=== PATIENT | female | born 1965 | race Caucasian/White ===

== ENCOUNTER 2019-06-27 15:45 | Emergency (ER) | payer OTHER ==
[~2019-06-27] VITALS: Ht 165.1 cm; Wt 52.3 kg
[2019-06-27] MEDS ORDERED: CLINDAMYCIN 900 MG/D5% WATER 50 ML IV ONE (16:45)
[2019-06-27 16:49] LABS: BASOPHILS % (AUTO) 0.6 % (0.0-2.0); EOSINOPHILS % (AUTO) 0.7 % (1.0-6.0); HEMATOCRIT 36.3 % (36-46); HEMOGLOBIN 11.7 g/dL (12.0-16.0); LYMPHOCYTES # (AUTO) 1.3 K/uL (1.0-4.8); LYMPHOCYTES % (AUTO) 9.1 % (22.0-44.0); MEAN CORPUSCULAR HEMOGLOBIN 25.7 pg (26.0-34.0); MEAN CORPUSCULAR HGB CONC 32.3 G/dL (31.0-37.0); MEAN CORPUSCULAR VOLUME 80 fL (80-100); MONOCYTES # (AUTO) 1.1 K/uL (0.1-1.0); MONOCYTES % (AUTO) 7.5 % (2.0-9.0); NEUTROPHILS # (AUTO) 11.6 K/uL (1.8-7.7); NEUTROPHILS % (AUTO) 82.1 % (40.0-70.0); PLATELET COUNT (AUTO) 390 K/uL (150-450); RED BLOOD CELL COUNT(AUTO) 4.57 MIL/uL (4.00-5.20); RED CELL DISTRIBUTION WIDTH 14.6 % (11.5-14.5)
[2019-06-27 17:00] LABS: APPEARANCE,URINE CLOUDY (CLEAR); BILIRUBIN,URINE NEGATIVE (NEGATIVE); GLUCOSE, URINE (UA) NEGATIVE (NEGATIVE); KETONES,URINE NEGATIVE (NEGATIVE); LEUKOCYTE ESTERASE ,URINE MODERATE (NEGATIVE); NITRATE,URINE POSITIVE (NEGATIVE); OCCULT BLOOD,URINE SMALL (NEGATIVE); PROTEIN,URINE POS 1+ (NEGATIVE)
[2019-06-27 17:03] LABS: ANION GAP 10 mmol/L (8-16); CALCIUM, TOTAL 8.7 mg/dL (8.8-10.5); CARBON DIOXIDE 28 mmol/L (22-29); CHLORIDE 103 mmol/L (98-107); CREATININE 0.94 mg/dL (0.60-1.30); GLOMERULAR FILTR. RATE CALC > 60 mL/min (>60); GLUCOSE,RANDOM 94 mg/dL (70-110); POTASSIUM 3.5 mmol/L (3.5-5.1); SODIUM SERUM 141 mmol/L (136-145); UREA NITROGEN, BLOOD 14 mg/dL (7-18)
[2019-06-27 17:08] LABS: BACTERIA,URINE Many /HPF (None Seen)
[2019-06-27 17:09] LABS: ALANINE AMINOTRANSFERASE 91 U/L (12-78); ALBUMIN 3.7 g/dL (3.4-5.0); ALKALINE PHOSPHATASE 179 U/L (46-116); ASPARTATE AMINOTRANSFERASE 121 U/L (15-37); BILIRUBIN,TOTAL 0.4 mg/dL (0.1-1.0); TOTAL PROTEIN, SERUM 9.1 g/dL (6.4-8.2)
[2019-06-27 17:10] LABS: RBC,URINE 0-2 /HPF (0-2); SQUAMOUS EPITHELIAL CELL,UR Few /LPF (None Seen); WBC,URINE >100 /HPF (0-5)
[2019-06-27 17:16] LABS: LACTIC ACID 1.4 mmol/L (0.4-2.0)
[2019-06-27] MEDS ORDERED: HYDROCODONE/ACETAMINOPHEN 5-325 MG TABLET PO ONE (17:30)
[2019-06-27] MEDS ORDERED: SODIUM CHLORIDE 0.9% 100 ML ONE (17:33)
[2019-06-27] MEDS ORDERED: IOVERSOL 320 MG/ML 100 ML VIAL ONE (17:33)
[2019-06-27] MEDS ORDERED: CefTRIAXone 1 GM/DEXTROSE 50 ML IV ONE (19:15)
[2019-06-27] MEDS ORDERED: LIDOCAINE/PF 1% 2 ML VIAL IM ONE (19:30)
[2019-06-27] MEDS ORDERED: CefTRIAXone SODIUM 1 GM/VIAL IM ONE (19:30)
[2019-06-27 19:59] VITALS: BP 157/95
== END 2019-06-27 20:27 | disposition left against medical advice (07) ==
LOC: EMS 15:45
DX: L03.113 Cellulitis of right upper limb (principal); N39.0 Urinary tract infection, site not specified; R03.0 Elevated blood-pressure reading, without diagnosis of hypertension
CPT/HCPCS: 36415; 73201; 80053; 81001; 83605; 85025; 87040; 87077; 87086; 87186; 87205; 96365; 96372; 99285; J0696; J3490 ×2; J7050; Q9967

== ENCOUNTER 2019-07-08 08:17 | Emergency (ER) | payer OTHER ==
[~2019-07-08] VITALS: Ht 167.6 cm; Wt 70.0 kg
[~2019-07-08 08:17] MED LIST: SULF1TAB42 PO
[2019-07-08 08:22] VITALS: BP 150/97
== END 2019-07-08 10:09 | disposition home or self-care (01) ==
LOC: EMS 08:20
DX: L03.113 Cellulitis of right upper limb (principal); L08.9 Local infection of the skin and subcutaneous tissue, unspecified; F19.10 Other psychoactive substance abuse, uncomplicated; F17.210 Nicotine dependence, cigarettes, uncomplicated; J44.9 Chronic obstructive pulmonary disease, unspecified; F11.90 Opioid use, unspecified, uncomplicated; F12.90 Cannabis use, unspecified, uncomplicated; F14.90 Cocaine use, unspecified, uncomplicated
CPT/HCPCS: 99406

== ENCOUNTER 2021-10-31 00:53 | Inpatient (IN) | payer OTHER ==
[~2021-10-31] VITALS: Ht 165.1 cm; Wt 50.0 kg
[2021-10-31 02:31] LABS: BASOPHILS % (AUTO) 0.8 % (0.0-2.0); EOSINOPHILS % (AUTO) 1.4 % (1.0-6.0); HEMATOCRIT 28.9 % (36-46); HEMOGLOBIN 9.3 g/dL (12.0-16.0); LYMPHOCYTES # (AUTO) 1.3 K/uL (1.0-4.8); LYMPHOCYTES % (AUTO) 12.5 % (22.0-44.0); MEAN CORPUSCULAR HEMOGLOBIN 21.1 pg (26.0-34.0); MEAN CORPUSCULAR HGB CONC 32.1 G/dL (31.0-37.0); MEAN CORPUSCULAR VOLUME 66 fL (80-100); MONOCYTES # (AUTO) 0.9 K/uL (0.1-1.0); MONOCYTES % (AUTO) 8.3 % (2.0-9.0); NEUTROPHILS # (AUTO) 8.3 K/uL (1.8-7.7); PLATELET COUNT (AUTO) 572 K/uL (150-450); RED CELL DISTRIBUTION WIDTH 18.3 % (11.5-14.5)
[2021-10-31 02:45] LABS: CALCIUM, TOTAL 9.4 mg/dL (8.8-10.5); CHLORIDE 102 mmol/L (98-107); CREATININE 0.82 mg/dL (0.60-1.30); GLUCOSE,RANDOM 92 mg/dL (70-110); POTASSIUM 3.2 mmol/L (3.5-5.1); UREA NITROGEN, BLOOD 8 mg/dL (7-18)
[2021-10-31 02:50] LABS: ALANINE AMINOTRANSFERASE 14 U/L (12-78); ALBUMIN 3.3 g/dL (3.4-5.0); ALKALINE PHOSPHATASE 74 U/L (46-116); ANION GAP 14 mmol/L (8-16); ASPARTATE AMINOTRANSFERASE 18 U/L (15-37); BILIRUBIN,TOTAL 0.5 mg/dL (0.1-1.0); CARBON DIOXIDE 25 mmol/L (22-29); SODIUM SERUM 141 mmol/L (136-145); TOTAL PROTEIN, SERUM 8.8 g/dL (6.4-8.2)
[2021-10-31 02:51] LABS: GLOMERULAR FILTR. RATE CALC > 60 mL/min (>60)
[2021-10-31] MEDS ORDERED: SODIUM CHLORIDE 0.9% 1,000 ML IV ONE (04:00)
[2021-10-31 04:44] LABS: COVID AG,FIA SOURCE NASAL SWAB
[2021-10-31] MEDS ORDERED: LORazepam 2 MG TABLET PO PRN (05:45)
[2021-10-31 06:04] LABS: % IRON SATURATION 14.2 % (22-44)
[2021-10-31] MEDS ORDERED: POTASSIUM CHL 10 MEQ/WATER 50 ML IV PRN (07:00)
[2021-10-31] MEDS: MAGNESIUM SULFATE 2 GM, MVI, ADULT NO.1 WITH VIT K 10 ML, THIAMINE 100 MG, FOLIC ACID 1... IV SCH ×5 (07:59)
[2021-10-31] MEDS: HEPARIN SODIUM,PORCINE 5,000 UNITS/ML VIAL SQ SCH ×3 (08:01→23:44)
[2021-10-31] MEDS: POTASSIUM CHLORIDE 20 MEQ ER TABLET PO PRN ×3 (08:11→23:45)
[2021-10-31 08:49] VITALS: BP 156/78
[2021-10-31] MEDS: ACETAMINOPHEN 325 MG TABLET PO PRN ×3 (10:16→21:09)
[2021-10-31] MEDS: ONDANSETRON HCL 4 MG/2 ML VIAL IVP PRN ×3 (10:16→23:45)
[2021-10-31 16:42] VITALS: BP 158/72
[2021-10-31 20:15] VITALS: BP 142/66
[2021-10-31 23:15] LABS: APPEARANCE,URINE HAZY (CLEAR); BILIRUBIN,URINE NEGATIVE (NEGATIVE); GLUCOSE, URINE (UA) NEGATIVE (NEGATIVE); KETONES,URINE NEGATIVE (NEGATIVE); LEUKOCYTE ESTERASE ,URINE NEGATIVE (NEGATIVE); NITRATE,URINE NEGATIVE (NEGATIVE); OCCULT BLOOD,URINE NEGATIVE (NEGATIVE); PROTEIN,URINE NEGATIVE (NEGATIVE); SPECIFIC GRAVITIY, URINE 1.014 (1.003-1.030); UROBILINOGEN,URINE <=1.0 mg/dL (<=1.0)
[2021-10-31 23:21] LABS: AMPHET/METH SCREEN,URINE NEGATIVE (NEGATIVE); BARBITURATE SCREEN, URINE NEGATIVE (NEGATIVE); BENZODIAZEPINES SCREEN,URINE NEGATIVE (NEGATIVE); CANNABINOID SCREEN,URINE NEGATIVE (NEGATIVE); COCAINE SCREEN,URINE POSITIVE (NEGATIVE); METHADONE SCREEN, URINE NEGATIVE (NEGATIVE); OPIATE SCREEN,URINE POSITIVE (NEGATIVE)
[2021-10-31 23:22] LABS: PHENCYCLIDINE SCREEN,URINE NEGATIVE (NEGATIVE)
[2021-11-01] VITALS (9 sets, daily range): BP systolic 127–204; BP diastolic 68–113
[2021-11-01] MEDS: MAGNESIUM SULFATE 2 GM, MVI, ADULT NO.1 WITH VIT K 10 ML, THIAMINE 100 MG, FOLIC ACID 1... IV SCH ×5 (03:06)
[2021-11-01] MEDS ORDERED: LORazepam 2 MG TABLET PO PRN (07:00)
[2021-11-01] MEDS: HEPARIN SODIUM,PORCINE 5,000 UNITS/ML VIAL SQ SCH ×3 (08:00→23:44)
[2021-11-01] MEDS ORDERED: CloNIDine HCL 0.1 MG TABLET PO PRN ×2 (08:15→11:15)
[2021-11-01] MEDS ORDERED: LORazepam 2 MG TABLET PO SCH (09:00)
[2021-11-01] MEDS ORDERED: MAGNESIUM SULFATE 2 GM, MVI, ADULT NO.1 WITH VIT K 10 ML, THIAMINE 100 MG, FOLIC ACID 1... IV ONE ×5 (11:15)
[2021-11-01 11:36] LABS: BASOPHILS % (AUTO) 2.4 % (0.0-2.0); EOSINOPHILS % (AUTO) 0.8 % (1.0-6.0); HEMATOCRIT 31.6 % (36-46); LYMPHOCYTES # (AUTO) 1.6 K/uL (1.0-4.8); LYMPHOCYTES % (AUTO) 14.3 % (22.0-44.0); MEAN CORPUSCULAR HEMOGLOBIN 20.7 pg (26.0-34.0); MEAN CORPUSCULAR HGB CONC 31.6 G/dL (31.0-37.0); MEAN CORPUSCULAR VOLUME 66 fL (80-100); MONOCYTES # (AUTO) 0.7 K/uL (0.1-1.0); MONOCYTES % (AUTO) 6.6 % (2.0-9.0); NEUTROPHILS # (AUTO) 8.4 K/uL (1.8-7.7); NEUTROPHILS % (AUTO) 75.9 % (40.0-70.0); PLATELET COUNT (AUTO) 612 K/uL (150-450); RED BLOOD CELL COUNT(AUTO) 4.81 MIL/uL (4.00-5.20); RED CELL DISTRIBUTION WIDTH 18.4 % (11.5-14.5)
[2021-11-01 11:57] LABS: % IRON SATURATION 5.5 % (22-44); IRON, SERUM 23 mcg/dL (50-175); TOTAL IRON BINDING CAPACITY 415 mcg/dL (250-450)
[2021-11-01 12:11] LABS: ALANINE AMINOTRANSFERASE 17 U/L (12-78); ALBUMIN 3.3 g/dL (3.4-5.0); ALKALINE PHOSPHATASE 76 U/L (46-116); ANION GAP 13 mmol/L (8-16); ASPARTATE AMINOTRANSFERASE 26 U/L (15-37); BILIRUBIN,TOTAL 0.3 mg/dL (0.1-1.0); CARBON DIOXIDE 24 mmol/L (22-29); CHLORIDE 101 mmol/L (98-107); FERRITIN 26 ng/mL (8-252); GLOMERULAR FILTR. RATE CALC > 60 mL/min (>60); GLUCOSE,RANDOM 100 mg/dL (70-110); SODIUM SERUM 138 mmol/L (136-145); TOTAL PROTEIN, SERUM 9.1 g/dL (6.4-8.2); UREA NITROGEN, BLOOD 5 mg/dL (7-18)
[2021-11-01] MEDS: AmLODIPine BESYLATE 10 MG TABLET PO SCH (17:02)
[2021-11-01] MEDS: CloNIDine HCL 0.1 MG TABLET PO PRN (23:45)
[2021-11-01] MEDS: ACETAMINOPHEN 325 MG TABLET PO PRN (23:45)
[2021-11-02 08:08] VITALS: BP 126/91
[2021-11-02] MEDS: AmLODIPine BESYLATE 10 MG TABLET PO SCH (08:48)
[2021-11-02] MEDS: HEPARIN SODIUM,PORCINE 5,000 UNITS/ML VIAL SQ SCH ×3 (08:49→23:26)
[2021-11-02] MEDS: ACETAMINOPHEN 325 MG TABLET PO PRN ×3 (08:52→23:26)
[2021-11-02] MEDS ORDERED: *CLINICAL-LEVOFLOXACIN IVPB DOSING CLINICAL ONE (12:45)
[2021-11-02] MEDS: ChlordiazePOXIDE HCL 10 MG CAPSULE PO SCH ×2 (15:06→23:26)
[2021-11-02] MEDS: LEVOFLOXACIN 500 MG/D5% WATER 100 ML IV SCH (15:06)
[2021-11-02 16:03] VITALS: BP 159/95
[2021-11-02 19:30] VITALS: BP 154/86
[2021-11-02] MEDS: ONDANSETRON HCL 4 MG/2 ML VIAL IVP PRN (19:46)
[2021-11-02 23:28] VITALS: BP 138/92
[2021-11-03 03:56] VITALS: BP 145/80
[2021-11-03] MEDS: ONDANSETRON HCL 4 MG/2 ML VIAL IVP PRN ×4 (05:19→23:07)
[2021-11-03] MEDS: ACETAMINOPHEN 325 MG TABLET PO PRN ×4 (05:22→20:59)
[2021-11-03] MEDS ORDERED: LORazepam 1 MG TABLET PO PRN (07:00)
[2021-11-03 08:07] VITALS: BP 151/86
[2021-11-03] MEDS: ChlordiazePOXIDE HCL 10 MG CAPSULE PO SCH (08:37)
[2021-11-03] MEDS: AmLODIPine BESYLATE 10 MG TABLET PO SCH (08:37)
[2021-11-03] MEDS: HEPARIN SODIUM,PORCINE 5,000 UNITS/ML VIAL SQ SCH ×3 (08:38→20:59)
[2021-11-03] MEDS: VITAMINS A & D 113 GM OINTMENT TP SCH (08:38)
[2021-11-03] MEDS ORDERED: LORazepam 1 MG TABLET PO SCH (09:00)
[2021-11-03] MEDS: LEVOFLOXACIN 500 MG/D5% WATER 100 ML IV SCH (14:53)
[2021-11-03 15:59] VITALS: BP 133/76
[2021-11-03] MEDS ORDERED: VANCOMYCIN HCL 1 GM in DEXTROSE 5%-WATER 250 ML IV ONE (18:00)
[2021-11-03 19:52] VITALS: BP 143/87
[2021-11-04] MEDS: ACETAMINOPHEN 325 MG TABLET PO PRN ×5 (01:22→21:13)
[2021-11-04 05:34] VITALS: BP 148/73
[2021-11-04] MEDS: ONDANSETRON HCL 4 MG/2 ML VIAL IVP PRN (06:25)
[2021-11-04] MEDS ORDERED: LORazepam 1 MG TABLET PO PRN (07:00)
[2021-11-04 07:40] VITALS: BP 154/84
[2021-11-04] MEDS ORDERED: VANCOMYCIN HCL 750 MG in DEXTROSE 5%-WATER 250 ML IV SCH (08:00)
[2021-11-04 08:22] LABS: ANION GAP 8 mmol/L (8-16); CALCIUM, TOTAL 9.5 mg/dL (8.8-10.5); CARBON DIOXIDE 27 mmol/L (22-29); CHLORIDE 102 mmol/L (98-107); CREATININE 0.91 mg/dL (0.60-1.30); GLOMERULAR FILTR. RATE CALC > 60 mL/min (>60); GLUCOSE,RANDOM 97 mg/dL (70-110); POTASSIUM 4.2 mmol/L (3.5-5.1); SODIUM SERUM 137 mmol/L (136-145); UREA NITROGEN, BLOOD 17 mg/dL (7-18)
[2021-11-04] MEDS: HEPARIN SODIUM,PORCINE 5,000 UNITS/ML VIAL SQ SCH ×2 (09:20→16:00)
[2021-11-04] MEDS: AmLODIPine BESYLATE 10 MG TABLET PO SCH (09:21)
[2021-11-04] MEDS: VITAMINS A & D 113 GM OINTMENT TP SCH (09:21)
[2021-11-04] MEDS: PROMETHAZINE HCL 6.25 MG/5 ML SYRUP ORAL.SYG PO PRN ×2 (13:32→21:13)
[2021-11-04 15:11] VITALS: BP 148/74
[2021-11-04] MEDS: LEVOFLOXACIN 750 MG TABLET PO SCH (17:11)
[2021-11-04 19:50] VITALS: BP 136/77
[2021-11-04] MEDS: LINEZOLID 600 MG TABLET PO SCH (21:13)
[2021-11-05] MEDS: HEPARIN SODIUM,PORCINE 5,000 UNITS/ML VIAL SQ SCH ×3 (00:02→16:16)
[2021-11-05 04:14] VITALS: BP 151/84
[2021-11-05] MEDS: PROMETHAZINE HCL 6.25 MG/5 ML SYRUP ORAL.SYG PO PRN ×2 (06:41→16:16)
[2021-11-05] MEDS: ACETAMINOPHEN 325 MG TABLET PO PRN ×3 (06:41→22:47)
[2021-11-05] MEDS: LEVOFLOXACIN 750 MG TABLET PO SCH (08:33)
[2021-11-05] MEDS: LINEZOLID 600 MG TABLET PO SCH ×2 (08:33→20:31)
[2021-11-05] MEDS: AmLODIPine BESYLATE 10 MG TABLET PO SCH (08:33)
[2021-11-05] MEDS: VITAMINS A & D 113 GM OINTMENT TP SCH (09:00)
[2021-11-05 10:23] VITALS: BP 153/97
[2021-11-05 16:08] VITALS: BP 164/85
[2021-11-05] MEDS ORDERED: SODIUM CL IRRIG SOLN BOTTLE 250 ML IRRIG ONE (18:42)
[2021-11-05 20:00] VITALS: BP 171/83
[2021-11-05] MEDS: CloNIDine HCL 0.1 MG TABLET PO PRN (22:47)
[2021-11-06] MEDS: HEPARIN SODIUM,PORCINE 5,000 UNITS/ML VIAL SQ SCH ×4 (00:02→23:30)
[2021-11-06] MEDS: PROMETHAZINE HCL 6.25 MG/5 ML SYRUP ORAL.SYG PO PRN ×3 (00:28→23:30)
[2021-11-06 04:30] VITALS: BP 141/82
[2021-11-06 08:00] VITALS: BP 162/93
[2021-11-06] MEDS ORDERED: METOCLOPRAMIDE HCL 10 MG TABLET PO SCH (08:00)
[2021-11-06] MEDS: CloNIDine HCL 0.1 MG TABLET PO PRN (08:59)
[2021-11-06] MEDS: LEVOFLOXACIN 750 MG TABLET PO SCH (08:59)
[2021-11-06] MEDS: LINEZOLID 600 MG TABLET PO SCH ×2 (08:59→20:11)
[2021-11-06] MEDS: AmLODIPine BESYLATE 10 MG TABLET PO SCH (08:59)
[2021-11-06] MEDS: VITAMINS A & D 113 GM OINTMENT TP SCH (09:01)
[2021-11-06] MEDS: ACETAMINOPHEN 325 MG TABLET PO PRN ×2 (09:05→14:54)
[2021-11-06 16:00] VITALS: BP 121/71
[2021-11-06 19:55] VITALS: BP 123/66
[2021-11-07 04:30] VITALS: BP 145/96
[2021-11-07 07:05] LABS: BASOPHILS % (AUTO) 1.4 % (0.0-2.0); EOSINOPHILS % (AUTO) 1.9 % (1.0-6.0); HEMATOCRIT 31.3 % (36-46); HEMOGLOBIN 10.1 g/dL (12.0-16.0); LYMPHOCYTES # (AUTO) 2.7 K/uL (1.0-4.8); LYMPHOCYTES % (AUTO) 24.3 % (22.0-44.0); MEAN CORPUSCULAR HGB CONC 32.2 G/dL (31.0-37.0); MEAN CORPUSCULAR VOLUME 65 fL (80-100); MONOCYTES # (AUTO) 0.7 K/uL (0.1-1.0); MONOCYTES % (AUTO) 6.7 % (2.0-9.0); NEUTROPHILS # (AUTO) 7.2 K/uL (1.8-7.7); NEUTROPHILS % (AUTO) 65.7 % (40.0-70.0); PLATELET COUNT (AUTO) 517 K/uL (150-450); RED BLOOD CELL COUNT(AUTO) 4.81 MIL/uL (4.00-5.20); RED CELL DISTRIBUTION WIDTH 18.8 % (11.5-14.5)
[2021-11-07 07:19] LABS: ANION GAP 10 mmol/L (8-16); CALCIUM, TOTAL 8.8 mg/dL (8.8-10.5); CARBON DIOXIDE 25 mmol/L (22-29); CHLORIDE 102 mmol/L (98-107); CREATININE 0.91 mg/dL (0.60-1.30); GLUCOSE,RANDOM 88 mg/dL (70-110); POTASSIUM 4.1 mmol/L (3.5-5.1); SODIUM SERUM 137 mmol/L (136-145); UREA NITROGEN, BLOOD 22 mg/dL (7-18)
[2021-11-07 07:20] LABS: GLOMERULAR FILTR. RATE CALC > 60 mL/min (>60)
[2021-11-07 07:27] LABS: ALANINE AMINOTRANSFERASE 24 U/L (12-78); ALBUMIN 3.3 g/dL (3.4-5.0); ALKALINE PHOSPHATASE 66 U/L (46-116); ANION GAP 10 mmol/L (8-16); ASPARTATE AMINOTRANSFERASE 26 U/L (15-37); BILIRUBIN,TOTAL 0.3 mg/dL (0.1-1.0); CALCIUM, TOTAL 8.9 mg/dL (8.8-10.5); CARBON DIOXIDE 24 mmol/L (22-29); CHLORIDE 102 mmol/L (98-107); CREATININE 0.93 mg/dL (0.60-1.30); GLUCOSE,RANDOM 88 mg/dL (70-110); POTASSIUM 4.1 mmol/L (3.5-5.1); SODIUM SERUM 136 mmol/L (136-145); TOTAL PROTEIN, SERUM 8.2 g/dL (6.4-8.2); UREA NITROGEN, BLOOD 22 mg/dL (7-18)
[2021-11-07 07:28] LABS: GLOMERULAR FILTR. RATE CALC > 60 mL/min (>60)
[2021-11-07 07:35] LABS: C-REACTIVE PROTEIN QUANT < 0.05 mg/dL (0.00-0.30)
[2021-11-07 08:34] VITALS: BP 130/84
[2021-11-07] MEDS: LEVOFLOXACIN 750 MG TABLET PO SCH (08:40)
[2021-11-07] MEDS: HEPARIN SODIUM,PORCINE 5,000 UNITS/ML VIAL SQ SCH ×2 (08:40→16:00)
[2021-11-07] MEDS: AmLODIPine BESYLATE 10 MG TABLET PO SCH (08:40)
[2021-11-07] MEDS: LINEZOLID 600 MG TABLET PO SCH (08:40)
[2021-11-07] MEDS: ACETAMINOPHEN 325 MG TABLET PO PRN (08:42)
[2021-11-07] MEDS: VITAMINS A & D 113 GM OINTMENT TP SCH (08:46)
[2021-11-07] MEDS: PROMETHAZINE HCL 6.25 MG/5 ML SYRUP ORAL.SYG PO PRN (10:50)
== END 2021-11-07 15:50 | DRG 603 ==
LOC: EMS 00:59 → 6N 05:33 → 6S 08:13
PROVIDERS: ADMIT Internal Medicine; ATTEND Internal Medicine
DX: L03.115 Cellulitis of right lower limb (principal); F10.239 Alcohol dependence with withdrawal, unspecified; E44.0 Moderate protein-calorie malnutrition; R78.81 Bacteremia; Z16.24 Resistance to multiple antibiotics; Z68.1 Body mass index [BMI] 19.9 or less, adult; L03.116 Cellulitis of left lower limb; B96.5 Pseudomonas (aeruginosa) (mallei) (pseudomallei) as the cause of diseases classified elsewhere; B96.89 Other specified bacterial agents as the cause of diseases classified elsewhere; E87.6 Hypokalemia; F14.90 Cocaine use, unspecified, uncomplicated; F17.210 Nicotine dependence, cigarettes, uncomplicated; I10 Essential (primary) hypertension; F19.10 Other psychoactive substance abuse, uncomplicated; J44.9 Chronic obstructive pulmonary disease, unspecified; F11.90 Opioid use, unspecified, uncomplicated; Z20.822 Contact with and (suspected) exposure to COVID-19; F12.90 Cannabis use, unspecified, uncomplicated; Z79.899 Other long term (current) drug therapy
CPT/HCPCS: 80048; 80053; 81003; 82728; 83540; 83550; 84132; 85025; 85045; 86140; 87040; 87070; 87077; 87205; 99285; G0480; J1644; J1956; J2405; J3370; J3411; J3475; J3490; J7030; J7060; Q9967